=== PATIENT | female | born 1990 | race Two or more races ===

== ENCOUNTER 2018-09-03 01:53 | Emergency (ER) | payer OTHER ==
[~2018-09-03] VITALS: Ht 167.6 cm; Wt 69.7 kg
[2018-09-03] MEDS ORDERED: LEVO112T4 PO (02:00)
--- NOTE | 2018-09-03 02:21 | NUR ---
PT STATES FEELING JITTERY AND INTERMITTENTLY SWEATY AND "OVERHEATING." PT DENIES ANY CP/SOB. STATES HX OF THYROID DISORDER W/ SYNTHROID MEDICATION WELL ANXIETY IN PAST. PT IS MILDLY TACHYCARDIC. MD AWARE. MD AT BEDSIDE FOR ASSESSMENT.
[2018-09-03] MEDS ORDERED: LORazepam 1MG TABLET PO ONE (02:30)
[2018-09-03] MEDS ORDERED: LORazepam 1MG TABLET ONE (02:32)
[2018-09-03 02:41] LABS: BASOPHILS # (AUTO) 0.05 x10^3/uL (0-0.1); BASOPHILS % (AUTO) 1 % (0-1); EOSINOPHILS # (AUTO) 0.36 x10^3/uL (0-0.4); EOSINOPHILS % (AUTO) 4 % (1-7); LYMPHOCYTES # (AUTO) 3.03 x10^3/uL (1-3.4); LYMPHOCYTES % (AUTO) 34 % (22-44); MD NO; MEAN CORPUSCULAR HEMOGLOBIN 31.1 pg (27.0-34.8); MEAN CORPUSCULAR HGB CONC 34.3 g/dL (32.4-35.8); MEAN CORPUSCULAR VOLUME 90.5 fL (80-100); MEAN PLATELET VOLUME 7.8 fL (7.4-10.4); MONOCYTES # (AUTO) 0.46 x10^3/uL (0.2-0.8); MONOCYTES % (AUTO) 5 % (2-9); NEUTROPHILS # (AUTO) 5.12 x10^3/uL (1.8-6.8); NEUTROPHILS % (AUTO) 57 % (42-75); PLATELET COUNT 336 x10^3/uL (130-400); RED BLOOD COUNT 4.01 x10^6/uL (3.82-5.3); RED CELL DISTRIBUTION WIDTH 13.8 % (9.6-15.2)
[2018-09-03 02:51] LABS: ANION GAP 7 mmol/L (5-15); CALCIUM 9.1 mg/dL (8.5-10.1); CHLORIDE 110 mmol/L (98-107); CREATININE 0.83 mg/dL (0.55-1.02)
[2018-09-03 04:00] VITALS: BP 146/70
== END 2018-09-03 04:02 | disposition home or self-care (01) ==
LOC: ED 03:56
DX: F41.1 Generalized anxiety disorder (principal); F41.0 Panic disorder [episodic paroxysmal anxiety]; Z79.899 Other long term (current) drug therapy
CPT/HCPCS: 36415; 80048; 84439; 84443; 85025; 99284